=== PATIENT | female | born 1980 | race Caucasian/White ===

== ENCOUNTER → 2024-12-01 | Day surgery (SDC) | payer OTHER ==
[~2024-12-01] MED LIST: ATORVASTATIN CA10 MG PO; FARXIGA10 MG PO; GLIMEPIRIDE2 MG PO; LEXAPRO20 MG PO; LIDOCAINE HCL 2% LOCAL INJ 5 ML SDV VIAL INJ ONE; METFORMIN HCL500 M2 PO; MOUNJARO7.5 MG/0.5 SQ; OMEPRAZOLE10 MG; OMEPRAZOLE20 M2 PO; PROPOFOL IV EMULSION 10 MG/ML 20 ML VIAL ONE
[2024-12-01] MEDS: LACTATED RINGER'S 1,000 ML ONE (07:25)
[2024-12-01 09:16] VITALS: BP 119/60; PULSE 88; RESP 17; O2SAT 97
== END | disposition home or self-care (01) ==
LOC: OR 06:20
PROVIDERS: ATTEND Internal Medicine Gastroenterology
DX: Z12.11 Encounter for screening for malignant neoplasm of colon (principal); K57.30 Diverticulosis of large intestine without perforation or abscess without bleeding; K64.8 Other hemorrhoids; E11.9 Type 2 diabetes mellitus without complications; E78.00 Pure hypercholesterolemia, unspecified; K21.9 Gastro-esophageal reflux disease without esophagitis; F32.A Depression, unspecified; F10.90 Alcohol use, unspecified, uncomplicated; E66.01 Morbid (severe) obesity due to excess calories; E66.813 Obesity, class 3; Z68.41 Body mass index [BMI] 40.0-44.9, adult; Z79.84 Long term (current) use of oral hypoglycemic drugs; Z79.85 Long-term (current) use of injectable non-insulin antidiabetic drugs; Z79.899 Other long term (current) drug therapy; Z87.891 Personal history of nicotine dependence
CPT/HCPCS: 36415; 45378; 81025; 82948; J2003; J2704; J7121